=== PATIENT | female | born 1950 | race Two or more races ===

== ENCOUNTER 2017-02-20 20:02 | Inpatient (IN) | payer SELFPAY ==
[~2017-02-20] VITALS: Ht 160 cm; Wt 93.0 kg
--- NOTE | 2017-02-20 20:58 | NUR ---
REC'D A 66 Y/O FEMALE BIB SPOUSE WITH C/C OF RIGHT EYE PAIN. PER PT, 1 YR OLD SON ACCIDENTALLY HIT HIS HEAD ON PT RIGHT EYE CAUSING PAIN AND SWELLING. PT STS SWELLING WAS NOT THERE UNTIL SHE BLEW HER NOSE. RIGHT EYE SWOLLEN SHUT AT THIS TIME WITH SLIGHT ECCHYMOSIS TO SURROUNDING AREA. PT AAOX4 AND TALKS IN CLEAR AND COMPLETE SENTENCES. RESPS EVEN AND UNLABORED. MSE COMPLETED BY DR PAEZ. WILL CARRY OUT ORDERS.
--- NOTE | 2017-02-20 21:43 | NUR ---
PT SITTING UP ON GURNEY IN POSITION OF COMFORT. RESPS EVEN AND UNLABORED. PT REPORTING 4/10 PAIN AND REQUESTING PAIN MEDICATION. DR PAEZ INFORMED.
--- NOTE | 2017-02-20 21:44 | NUR ---
PT TAKEN TO RADIOLOGY FOR CT EXAM
--- NOTE | 2017-02-20 22:03 | NUR ---
PT MEDICATED PER MD ORDER. PLEASE SEE EMAR,
[2017-02-20 22:54] LABS: BASOPHIL % 0.3 % (0-2); PLATELET COUNT 212 x10^3mcL (130-400)
[2017-02-20 22:59] LABS: RED CELL DISTRIBUTION WIDTH 15.4 % (11.5-14.5)
[2017-02-20 23:06] LABS: CALCIUM 9.5 mg/dL (8.5-10.1); CARBON DIOXIDE 27.2 mmol/L (21-32); CHLORIDE SERUM 104 mmol/L (98-107); CREATININE SERUM 0.7 mg/dL (0.6-1.0); GFR1 > 60 mL/min; GLUCOSE SERUM 181 mg/dL (74-106); POTASSIUM SERUM 4.7 mmol/L (3.5-5.1); SODIUM SERUM 140 mmol/L (136-145)
--- NOTE | 2017-02-20 23:08 | NUR ---
ROCEPHIN STARTED IVPB PER ORDER. PLEASE SEE EMAR. PER DR PAEZ NO BLOOD CX NEEDED.
--- NOTE | 2017-02-20 23:10 | NUR ---
PER SON AT BEDSIDE, PT MED REC FROM MEDICATIONS SHE TAKES FROM J[facility]I. SON STS MEDICATIONS ARE BOTH FOR HTN AND TYPE 2 DM. MEDICATIONS NOT LISTED IN OUR SYSTEM. MEDICATIONS ARE: GLYCOMET 400MG GLYKIND (M) 200MG TAZLOC 40MG-200MG AMTAS 200MG DREGO 120MG CLAVIX 200MG LIPICURE 10-200MG STUGERAN 200MG
--- NOTE | 2017-02-20 23:31 | NUR ---
REPORT CALLED TO ALEJANDRA TO ASSUME CARE OF PT ON MED SURG
--- NOTE | 2017-02-20 23:42 | NUR ---
PT TRANSFERRED TO TELE
[2017-02-20 23:55] VITALS: BP 155/100
--- NOTE | 2017-02-21 00:04 | NUR ---
RECEIVED PATIENT FROM ED VIA PRETTY,SON AT BEDSIDE, ORIENTED PATIENT TO ROOM AND SURROUNDINGS, NO C/O PAIN AT THIS TIME, BED IN LOW POSITION, BED RAILS UP X 2, CALL LIGHT WITHIN REACH, WILL ENDORSE CARE LUKE KELLEY RN
[2017-02-21 00:07] LABS: CHOLESTEROL/HDL RATIO 3.1
[2017-02-21 00:15] LABS: T3 TOTAL 0.84 ng/mL
[2017-02-21 00:22] LABS: FREE T4 0.81 ng/dL (0.76-1.46)
[2017-02-21 00:24] LABS: FREE THYROXINE INDEX 1.4 ug/dL (1.4-4.5); T4(THYROXINE) 4.5 ug/dL (4.7-13.3)
--- NOTE | 2017-02-21 00:45 | NUR ---
STILL AWAKE WITH ADMISSION ORDERS FROM DR LIGHT AND CARRIED OUT. TELE# 14,ST 105 ON MONITOR, DENIES CHESTPAIN. BP-155/100 MADE AWARE, VASOTEC 0.625MG IVP GIVEN PRESCRIBED. WILL CONTINUE TO MONITOR. CALL LIGHT WITHIN REACH.
[2017-02-21 02:00] VITALS: BP 133/70
--- NOTE | 2017-02-21 02:03 | NUR ---
SLEEPING THIS TIME BREATHING EASYA ND NONLABOR. PHOTO OF RT ORBITAL SWELLING TAKE. WILL CONTINUE TO MONITOR.
--- NOTE | 2017-02-21 03:51 | NUR ---
AWAKE AND VOIDED SPECIMEN COLLECTED FOR UA, YRC AND UDS, SENT TO LAB. BP RECHECKED-133/70.
--- NOTE | 2017-02-21 05:19 | NUR ---
SLEPT FAIRLY, COLD COMPRESS APPLIED TO RT ORBITAL SWEEING. ALL NEEDS ATTENDED. SON AT BEDSIDE.
[2017-02-21 05:45] VITALS: BP 131/89
[2017-02-21 06:12] LABS: BASOPHIL % 0.2 % (0-2); PLATELET COUNT 202 x10^3mcL (130-400)
[2017-02-21 06:22] LABS: RED CELL DISTRIBUTION WIDTH 15.5 % (11.5-14.5)
[2017-02-21 06:34] LABS: PHOSPHOROUS 3.2 mg/dL (2.5-4.9)
[2017-02-21 07:12] LABS: urine erythrocyte NEGATIVE (NEGATIVE)
[2017-02-21 07:13] LABS: microscopic required? YES
--- NOTE | 2017-02-21 07:15 | NUR ---
RECEIVED REPORT FROM ALIA NOGUEIRA AT THIS TIME. PATIENT RESTING IN BED ON RIGHT SIDE, WITH EYES CLOSED. ON TELE # 14, HR 106. ON ROOM AIR NO DISTRESS NOTED. IV TO RIGHT WRIST INFUSING NS AT 80ML/HR. SCDS AT THE BEDSIDE. SON AT THE BEDSIDE. CALL LIGHT WITH IN REACH. WILL CONTINUE TO MONITOR.
[2017-02-21 08:13] VITALS: BP 128/84
--- NOTE | 2017-02-21 08:18 | NUR ---
DR. VEGA AND DR. FOSTER, IN TO SEE PATIENT AT THIS TIME. PLAN OF CARE IS DISCUSSED. QUESTIONS AND CONCERNS ADDRESSED. WILL CONTINUET TO MONITOR.
[2017-02-21 09:34] LABS: AMPHETAMINE QUAL UR NONE DETECTED (NEG <=1000)
--- NOTE | 2017-02-21 11:20 | NUR ---
IN TO SEE PATIENT AT THIS TIME. PROVIDED A COLD PACK FOR SWELLING TO RIGHT EYE. DENIES PAIN AT THIS TIME. ASSISTED PATIENT TO RESTROOM, GAIT IS STEADY. WILL CONTINUE TO MONITOR.
[2017-02-21 12:45] VITALS: BP 126/79
--- NOTE | 2017-02-21 13:37 | NUR ---
PATIENT SITTING UP IN BED. PER PATIENT SHE HAS EYE PAIN AT TIMES BUT DENIES PAIN AND PAIN MEDICATION AT THIS TIME. GAVE PATIENT A COLD PACK TO PLACE ON ORBITAL AREA. SON AT THE BEDSIDE. CALL LIGHT WITH IN REACH.
[2017-02-21] MEDS ORDERED: KEFLEX500 M1 PO (16:17)
[2017-02-21 16:24] VITALS: BP 126/79
[2017-02-21] MEDS ORDERED: PREDNISONE5 M1 PO (16:29)
[2017-02-21] MEDS ORDERED: AFRNS (16:30)
[2017-02-21] MEDS ORDERED: LAC PO (16:31)
[2017-02-21] MEDS ORDERED: BENADRYL ALLERG25 M1 PO (16:31)
[2017-02-21] MEDS ORDERED: NORCO1 TA2 PO (16:31)
--- NOTE | 2017-02-21 16:54 | NUR ---
BEDSIDE BLOOD GLUCOSE 209 AT THIS TIME PATIENT REFUSED INSULIN COVERAGE. SON STATES HE WILL MEDICATE FOR BLOOD GLUCOSE AT HOME.
--- NOTE | 2017-02-21 17:10 | NUR ---
DISCHARGE INSTRUCTIONS GIVEN TO PATIENT AND HER SON AT THIS TIME. SON AND PATIENT VERBALIZE UNDERSTANDING. QUESTIONS AND CONCERNS ADDRESSED. ID BAND REMOVED. IV REMOVED, CATH INTACT. 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 ALL BELONGINGS WITH PATIENT. ESCORTED DOWN TO LOBBY BY GUSTABO COOPER RN.
== END 2017-02-21 17:20 | disposition home or self-care (01) | DRG 124 ==
LOC: ED 20:02 → DU 22:49 → ED 23:41 → DU 23:42
PROVIDERS: Emergency Medicine; ADMIT Family Medicine
DX: S02.31XA Fracture of orbital floor, right side, initial encounter for closed fracture (principal); N17.0 Acute kidney failure with tubular necrosis; W19.XXXA Unspecified fall, initial encounter; E66.9 Obesity, unspecified; I16.0 Hypertensive urgency; E78.5 Hyperlipidemia, unspecified; E11.65 Type 2 diabetes mellitus with hyperglycemia; Z53.29 Procedure and treatment not carried out because of patient's decision for other reasons; Z79.899 Other long term (current) drug therapy; Y93.89 Activity, other specified; Y92.89 Other specified places as the place of occurrence of the external cause; Z68.36 Body mass index [BMI] 36.0-36.9, adult; Y99.8 Other external cause status
CPT/HCPCS: 80307; 82962; 83880; 84439; 90732; J0696; J2543; J2920; J3490; J7030; Q0092